=== PATIENT | female | born 1955 ===

== ENCOUNTER 2024-03-07 13:29 | Outpatient (CLI) | payer SELFPAY ==
[2024-03-07 13:28] LABS: Abs Immature Grans 0.14 10^3/uL (0.0-0.06); Absolute Basophil Count 0.02 10^3/uL (0.0-0.2); Absolute Lymphocyte Count 0.75 10^3/uL (1.2-3.4); Absolute Monocyte Count 1.03 10^3/uL (0.1-0.8); Basophils % 0.1 %; Eosinophils % 1.1 %; HCT 25.5 % (36.0-46.0); HGB 8.1 g/dL (11.2-15.7); Immature Grans % 0.9 %; Lymphocytes % 4.7 %; MCH 24.8 pg (27.0-33.0); MCHC 31.8 % (32.0-36.0); MCV 78 fL (80-95); MPV 8.9 fL (8.0-11.0); Monocytes % 6.5 %; Neutrophils % 86.7 %; Platelet Count 552 10^3/uL (130-400); RBC 3.26 10^6/uL (3.93-5.22); RDW 14.5 % (11.7-14.6); RDW-SD 41.4 fL; WBC 15.88 10^3/uL (4.4-10.8)
[2024-03-07 13:52] LABS: Absolute Eosinophil Count 0.17 10^3/uL (0.0-0.7); Absolute Neutrophil Count 13.77 10^3/uL (1.2-6.7); Diff Comment Agrees w/ Instrument; Hypochromasia 2+; Polychromasia Present
[2024-03-07 13:58] LABS: ALT 18 U/L (14-59); AST 33 U/L (15-37); Albumin 1.8 g/dL (3.4-5.0); Alkaline Phosphatase 107 U/L (46-116); Anion Gap 10.5 mmol/L (3-11); BUN 26 mg/dL (7-18); Bilirubin, Total 0.39 mg/dL (0.2-1.0); CO2 29.5 mmol/L (21.0-32.0); CREATININE 0.8 mg/dL (0.55-1.02); Calcium 8.6 mg/dL (8.5-10.1); Chloride 94 mmol/L (98-107); Estimated GFR 79.71 (mL/min/1.73m2); Glucose 109 mg/dL (74-106); LDH 928 U/L (81-234); Potassium 3.9 mmol/L (3.5-5.1); Sodium 134 mmol/L (136-145); Total Protein 6.3 g/dL (6.4-8.2); Uric Acid 8.2 mg/dL (2.6-6.0)
[2024-03-08 08:37] LABS: HBs Antibody, Quant <3.1 mIU/mL (See Note); Hepatitis B Surface Ab Negative (See Note)
[2024-03-08 09:27] LABS: Hep B Core Antibody Negative (Negative)
[2024-03-08 10:06] LABS: Hepatitis B Surface Ag Negative (Negative)
[2024-03-08 10:13] LABS: IgA 150 mg/dL (85-499); IgG 351 mg/dL (610-1616); IgM 42 mg/dL (35-242); Kappa Free Light Chain 3.91 mg/dL (0.33-1.94); Lambda Free Light Chain 1.62 mg/dL (0.57-2.63)
[2024-03-08 10:37] LABS: HIV-1/2 Ag & Ab Screen Negative (Negative)
[2024-03-08 10:38] LABS: Hepatitis C Ab w Rflx HCV PCR Negative (Negative)
[2024-03-12 09:49] LABS: Albumin 39.8 % (55.8-66.1); Albumin g/dL 2.2 g/dL (3.6-5.2); Comment (See Note); Total Protein 5.5 g/dL (6.3-8.2)
[2024-03-12 13:21] LABS: Immunotyping, Serum (See Note)
== END 2024-03-07 13:30 | disposition home or self-care (01) ==
LOC: LBO 13:31
PROVIDERS: PCP Internal Medicine Hematology & Oncology; Visit Provider Internal Medicine Hematology & Oncology
DX: C83.38 Diffuse large B-cell lymphoma, lymph nodes of multiple sites (principal)
CPT/HCPCS: 36415; 80053; 82784; 86704; 86706; 86803; 87340; 87389; 83615; 83883; 84165; 84550; 85025; 86320